=== PATIENT | female | born 1955 | race African-American/Black ===

== ENCOUNTER 2024-05-03 09:40 | Emergency (ER) | payer OTHER ==
[~2024-05-03] VITALS: Ht 162.6 cm; Wt 64.0 kg
[2024-05-03 09:41] VITALS: O2SAT 98
[2024-05-03 10:34] LABS: BASOPHILS % 0.4 % (0.0-2.0); EOSINOPHILS % 0.5 % (0.0-5.0); HEMATOCRIT. 40.3 % (36.0-48.0); HEMOGLOBIN. 13.4 g/dL (12.0-16.0); LYMPHOCYTES % 27.3 % (20.0-50.0); MEAN CORPUSCULAR HGB CONC 33.2 g/dL (31.0-37.0); MEAN CORPUSCULAR VOLUME 87.4 fL (81.0-99.0); MEAN PLATELET VOLUME 8.3 fl (7.4-10.4); MONOCYTES % 6.5 % (2.0-8.0); NEUTROPHILS % 65.3 % (40.0-76.0); PLATELET 265 x1000/uL (130-400); RED BLOOD CELL COUNT 4.61 mill/uL (4.2-5.4); WHITE BLOOD COUNT 5.4 x1000/uL (4.5-11.0)
[2024-05-03 10:37] LABS: CARBON DIOXIDE 28 mEq/L (21-32); CHLORIDE 105 mEq/L (98-107); POTASSIUM 2.9 mEq/L (3.5-5.1); SODIUM 140 mEq/L (136-145)
[2024-05-03 10:38] LABS: CALCIUM 9.1 mg/dL (8.7-10.4)
[2024-05-03 10:42] LABS: CREATININE 0.7 mg/dL (0.6-1.0)
[2024-05-03 10:43] LABS: GLUCOSE 118 mg/dL (70-105); TROPONIN I HIGH SENSITIVITY 8 ng/L (3.0-34); UREA NITROGEN BLOOD 7 mg/dL (9-23)
[2024-05-03 10:44] LABS: ALANINE AMINOTRANSFERASE 10 IU/L (10-49); ALBUMIN 4.3 g/dL (3.2-4.8); ASPARTATE AMINOTRANSFERASE 20 IU/L (<34)
[2024-05-03 10:45] LABS: BILIRUBIN DIRECT 0.2 mg/dL (<=3.0); BILIRUBIN TOTAL 0.6 mg/dL (0.1-1.0); PROTEIN TOTAL 7.4 g/dL (6.0-8.3)
[2024-05-03 10:50] LABS: PROTHROMBIN TIME 11.2 sec (9.6-11.0)
[2024-05-03] MEDS: PIPERACILLIN/TAZO 3.375G/50ML 50 ML IV NR (10:51)
[2024-05-03] MEDS: VANCOMYCIN 1G PREMIX 200 ML IV NR (10:51)
[2024-05-03] MEDS: SODIUM CHLORIDE 0.9% 1000ML BAG (SEPSIS BOLUS) IV NR (10:51)
[2024-05-03] MEDS: THIAMINE HCL 100 MG in SODIUM CHLORIDE 0.9% 49 ML IV NR (12:08)
[2024-05-03] MEDS: POTASSIUM CHLORIDE 20MEQ TABLET SR PO NR (12:13)
[2024-05-03] MEDS: POTASSIUM CHLORIDE 30 MEQ in DEXT 5%/0.9% NACL 985 ML IV SCH (12:34)
[2024-05-03] MEDS ORDERED: HYDRALAZINE 20MG/ML VIAL IV PRN (12:45)
[2024-05-03] MEDS ORDERED: ONDANSETRON HCL 4MG/2ML INJ IV PRN (12:45)
[2024-05-03] MEDS ORDERED: DEXTROSE 50% WATER 50ML SYRINGE IV PRN (12:45)
[2024-05-03] MEDS ORDERED: IPRATROPIUM/ALBUTEROL 0.5-3(2.5)MG/3ML NEB HHN PRN (12:45)
[2024-05-03] MEDS ORDERED: ACETAMINOPHEN 325MG TABLET PO PRN (12:45)
[2024-05-03 13:24] VITALS: BP 159/72; PULSE 83; RESP 16; TEMP 37.28076; O2SAT 98
[2024-05-03] MEDS: BLOOD SUGAR DIAGNOSTIC STRIP TEST SCH (13:55)
[2024-05-03] MEDS ORDERED: ATORVASTATIN CALCIUM 20MG TABLET PO SCH (21:00)
[2024-05-03] MEDS ORDERED: MEMANTINE HCL 10MG TABLET PO SCH (21:00)
== END 2024-05-03 14:01 ==
LOC: ER 09:40
DX: A41.9 Sepsis, unspecified organism (principal); F03.92 Unspecified dementia, unspecified severity, with psychotic disturbance; E11.649 Type 2 diabetes mellitus with hypoglycemia without coma; Z85.3 Personal history of malignant neoplasm of breast; Z79.899 Other long term (current) drug therapy
CPT/HCPCS: 99291; 96365; 96367; 80076; 80048; 82962; 83605; 83735; 85025; 85610; 87040; 84484; 36415; 84145; 71045; 93005; 96368; J2543; J3480; J3411; J3370; J7042; J7030